=== PATIENT | female | born 1990 | race Caucasian/White ===

== ENCOUNTER → 2018-05-01 | Outpatient (REF) | payer OTHER ==
[~2018-05-01] MED LIST: D 1010004 PO; FISH1000 PO; IBUP60TA PO; LEVO112T2 PO; MAPA500T2 PO; PRENTAB20 PO; VALT1TAB PO; ZOLO100T PO
== END ==
LOC: M SFHCLERA 13:39
PROVIDERS: ATTEND Physician Assistant
DX: N89.8 Other specified noninflammatory disorders of vagina (principal)

== ENCOUNTER 2018-10-17 09:31 | Emergency (ER) | payer OTHER ==
[~2018-10-17] VITALS: Ht 162.6 cm; Wt 76.5 kg
[~2018-10-17 09:31] MED LIST changes: +IBUP600T42 PO; -IBUP60TA PO
[2018-10-17] MEDS ORDERED: ONDANSETRON 4 MG ORAL DISINTEGRATING TAB (Q0162 PER 1MG) PO ONE (11:30)
[2018-10-17] MEDS ORDERED: ACETAMINOPHEN 325 MG TAB PO ONE (11:30)
--- NOTE | 2018-10-17 12:26 | REP ---
CT of the head without contrast Indication: Head injury. Comparison: CT head 08/27/2012. Technique: Axial CT of the head was performed without contrast. Findings: There is no visible soft tissue swelling or calvarial fracture. There is no evidence of acute intracranial hemorrhage or extra-axial fluid collection. Thorpe-white matter differentiation is maintained. There is no mass effect or midline shift. The basal cisterns are patent. There is no hydrocephalus. The visualized paranasal sinuses and mastoid air cells are clear. Impression: No acute intracranial abnormality. Electronically Signed by Priscilla Salmon MD 10/17/2018 11:00 A
[2018-10-17 12:57] VITALS: BP 125/81
[2018-10-17] MEDS ORDERED: ONDA4TAB6 PO (13:07)
[2018-10-17] MEDS ORDERED: IBUP-1022 PO (13:07)
== END 2018-10-17 13:13 | disposition home or self-care (01) ==
LOC: M ED 09:31
DX: S06.0X0A Concussion without loss of consciousness, initial encounter (principal); W19.XXXA Unspecified fall, initial encounter; Y92.099 Unspecified place in other non-institutional residence as the place of occurrence of the external cause; Y93.9 Activity, unspecified; Y99.9 Unspecified external cause status; E03.9 Hypothyroidism, unspecified; Z87.891 Personal history of nicotine dependence; Z79.899 Other long term (current) drug therapy; Z91.030 Bee allergy status
CPT/HCPCS: 70450; 99283; Q0162

== ENCOUNTER → 2019-03-03 | Outpatient (REF) | payer OTHER ==
[~2019-03-03] MED LIST changes: +IBUP-1022 PO; +ONDA4TAB6 PO
[2019-03-03 20:57] LABS: CHLAMYDIA DNA AMPLIFICATION NEGATIVE (NEGATIVE); GC DNA AMPLIFICATION NEGATIVE (NEGATIVE)
== END ==
LOC: M SFHCLERA 10:06
PROVIDERS: ATTEND Nurse Practitioner Family
DX: R50.9 Fever, unspecified (principal)

== ENCOUNTER 2020-06-03 13:25 | Emergency (ER) | payer OTHER ==
[~2020-06-03] VITALS: Ht 162.6 cm; Wt 91.6 kg
--- NOTE | 2020-06-03 14:01 | REP ---
INDICATION: fall injury COMPARISON: None. TECHNIQUE: Three views left shoulder. FINDINGS: There is no evidence of acute fracture, dislocation, or intrinsic bone disease. IMPRESSION: No fracture or dislocation. <Electronically signed by Tony Thorpe > 06/03/20 [id number]
[2020-06-03] MEDS ORDERED: NORCO, ANEXSIA 5/325MG TABLET (HYDROcodone/ACETAMINOPHEN) PO ONE (14:10)
--- NOTE | 2020-06-03 14:45 | REP ---
INDICATION: fell 8 ft onto arm COMPARISON: None. TECHNIQUE: Two views left humerus. FINDINGS: There is no evidence of acute fracture, dislocation, or intrinsic bone disease. IMPRESSION: No fracture or dislocation. <Electronically signed by Tony Thorpe > 06/03/20 [id number]
--- NOTE | 2020-06-03 14:47 | REP ---
INDICATION: fell 8 ft onto arm COMPARISON: None. TECHNIQUE: Two views left forearm. FINDINGS: There is no evidence of acute fracture, dislocation, or intrinsic bone disease. IMPRESSION: No fracture or dislocation. <Electronically signed by Tony Thorpe > 06/03/20 [id number]
[2020-06-03] MEDS ORDERED: KETO10TAB PO (14:57)
[2020-06-03 15:04] VITALS: BP 121/73
== END 2020-06-03 15:08 | disposition home or self-care (01) ==
LOC: M ED 13:25
DX: S49.92XA Unspecified injury of left shoulder and upper arm, initial encounter (principal); W11.XXXA Fall on and from ladder, initial encounter; Y92.009 Unspecified place in unspecified non-institutional (private) residence as the place of occurrence of the external cause; Y93.9 Activity, unspecified; Y99.9 Unspecified external cause status; E03.9 Hypothyroidism, unspecified; E56.9 Vitamin deficiency, unspecified; F41.9 Anxiety disorder, unspecified; F32.9 Major depressive disorder, single episode, unspecified; Z79.899 Other long term (current) drug therapy; Z91.030 Bee allergy status

== ENCOUNTER → 2020-06-18 | Outpatient (CLI) | payer OTHER ==
[~2020-06-18] MED LIST changes: +KETO10TAB PO
--- NOTE | 2020-06-18 10:38 | REP ---
INDICATION: INSTABILITY. COMPARISON: None. TECHNIQUE: Single axillary view of the left shoulder. FINDINGS: Glenohumeral joint dislocation cannot be excluded based on this current single image. No obvious acute fracture. IMPRESSION: Cannot exclude glenohumeral joint dislocation based on current image. <Electronically signed by Eliazar Russell > 06/18/20 [id number]
== END ==
LOC: M SOG 10:00
PROVIDERS: ATTEND Orthopaedic Surgery Sports Medicine
DX: M25.312 Other instability, left shoulder (principal)

== ENCOUNTER 2021-07-20 08:15 | Emergency (ER) | payer OTHER ==
[~2021-07-20] VITALS: Ht 162.6 cm; Wt 82.8 kg
[2021-07-20 09:25] LABS: BASO % 0.3 % (0.0-1.0); EOS # 0.1 10^3/uL (0.0-0.5); EOS % 1.2 % (0.0-3.0); HEMATOCRIT 42.9 % (36.0-47.0); LYMPH # 2.5 10^3/uL (1.5-5.0); LYMPH % 25.7 % (24.0-44.0); MEAN CORPUSCULAR HEMOGLOBIN 28.7 pg (27.0-33.0); MEAN CORPUSCULAR HGB CONC 32.6 g/dl (32.0-36.5); MEAN CORPUSCULAR VOLUME 88.1 fl (80.0-96.0); MONO # 0.6 10^3/uL (0.0-0.8); MONO % 6.3 % (2.0-8.0); NEUTROPHILS # 6.3 10^3/uL (1.5-8.5); NEUTROPHILS % 66.1 % (36.0-66.0); PLATELET COUNT, AUTOMATED 225 10^3/uL (150-450); RED BLOOD COUNT 4.87 10^6/uL (4.00-5.40); WHITE BLOOD COUNT 9.6 10^3/uL (4.0-10.0)
[2021-07-20 09:54] LABS: ALBUMIN 3.4 GM/DL (3.2-5.2); ALT/SGPT 42 U/L (12-78); BILIRUBIN,DIRECT < 0.1 MG/DL (0.0-0.2); BILIRUBIN,TOTAL 0.3 MG/DL (0.2-1.0); LIPASE 87 U/L (73-393)
[2021-07-20 11:44] VITALS: BP 116/81
== END 2021-07-20 12:09 | disposition home or self-care (01) ==
LOC: EEVIPCON 08:15 → M ED 08:15
DX: R10.11 Right upper quadrant pain (principal); R11.2 Nausea with vomiting, unspecified; R56.9 Unspecified convulsions; E53.9 Vitamin B deficiency, unspecified; Z91.030 Bee allergy status; Z79.899 Other long term (current) drug therapy

== ENCOUNTER → 2021-10-02 | Outpatient (REF) | LOC: M LABSMTC 09:21 | PROVIDERS: ATTEND Family Medicine | DX: Z20.822 Contact with and (suspected) exposure to COVID-19 (principal) ==

== ENCOUNTER → 2022-02-03 | Outpatient (REF) ==
[2022-02-03 13:17] LABS: RSV AMPLIFICATION NEGATIVE (NEGATIVE)
== END ==
LOC: M LABSMTC 11:50
PROVIDERS: ATTEND Family Medicine
DX: Z20.818 Contact with and (suspected) exposure to other bacterial communicable diseases (principal)

== ENCOUNTER → 2022-08-03 | Outpatient (REF) ==
[2022-08-03 11:00] LABS: RSV AMPLIFICATION NEGATIVE (NEGATIVE)
== END ==
LOC: M EMP 09:23
PROVIDERS: ATTEND Family Medicine
DX: Z20.822 Contact with and (suspected) exposure to COVID-19 (principal)

== ENCOUNTER 2023-05-16 00:13 | Observation (INO) | payer OTHER ==
[~2023-05-16] VITALS: Ht 162.6 cm; Wt 87.7 kg
[2023-05-16 00:44] LABS: BASO # 0.1 10^3/uL (0.0-0.2); BASO % 0.3 % (0.0-1.0); EOS # 0.1 10^3/uL (0.0-0.5); EOS % 0.7 % (0.0-3.0); HEMATOCRIT 43.9 % (36.0-47.0); HEMOGLOBIN 14.5 g/dl (12.0-15.5); LYMPH # 2.8 10^3/uL (1.5-5.0); LYMPH % 16.5 % (24.0-44.0); MEAN CORPUSCULAR HEMOGLOBIN 28.5 pg (27.0-33.0); MEAN CORPUSCULAR VOLUME 86.2 fl (80.0-96.0); MONO # 0.9 10^3/uL (0.0-0.8); MONO % 5.3 % (2.0-8.0); NEUTROPHILS % 76.8 % (36.0-66.0); PLATELET COUNT, AUTOMATED 273 10^3/uL (150-450); RED BLOOD COUNT 5.09 10^6/uL (4.00-5.40)
[2023-05-16 01:06] LABS: INR 0.95; PARTIAL THROMBOPLASTIN TIME 26.1 SECONDS (24.8-34.2); PROTHROMBIN TIME 12.4 SECONDS (12.5-14.5)
[2023-05-16 01:10] LABS: CK-MB VALUE MASS < 1.0 NG/ML (<3.6)
[2023-05-16 01:11] LABS: BLOOD UREA NITROGEN 16 MG/DL (9-23); CALCIUM LEVEL 9.3 MG/DL (8.5-10.1); CARBON DIOXIDE LEVEL 24 MMOL/L (20-31); CHLORIDE LEVEL 106 MMOL/L (98-107); CREATININE FOR GFR 0.78 MG/DL (0.55-1.30); GLOMERULAR FILTRATION RATE > 60.0 (>60); GLUCOSE, FASTING 105 MG/DL (60-100); POTASSIUM SERUM 4.7 MMOL/L (3.5-5.1); SODIUM LEVEL 139 MMOL/L (136-145)
[2023-05-16 01:21] LABS: CPK CREATINE PHOSPHOKINASE 81 U/L (34-145); MB/CK RELATIVE INDEX 1.23 (< OR =4)
[2023-05-16] MEDS ORDERED: KETOROLAC 30 MG/ML 1ML VIAL As Ordered ONE (01:23)
[2023-05-16] MEDS: METOCLOPRAMIDE INJ 10MG/2ML VIAL IV ONE (01:24)
[2023-05-16 01:28] LABS: HCG, SERUM QUALITATIVE NEGATIVE (NEGATIVE)
[2023-05-16] MEDS ORDERED: ISOVUE-370 76% 100ML VIAL As Ordered ONE (01:30)
[2023-05-16] MEDS: KETOROLAC 30 MG/ML 1ML VIAL IV ONE ×2 (01:52→14:27)
[2023-05-16 01:53] VITALS: BP 111/68; TEMP 97.8; O2SAT 95
[2023-05-16] MEDS ORDERED: MORPHINE 2 MG/ML 1ML VIAL As Ordered ONE (02:07)
[2023-05-16] MEDS: MORPHINE 2 MG/ML 1ML VIAL IV ONE (02:11)
[2023-05-16] MEDS: MAG SULF 1GM/100ML (MAG RUN) 1 GM in IV 1 EA IV ONE (02:12)
[2023-05-16] MEDS: ASPIRIN 81MG CHEW TABLET PO ONE (02:21)
[2023-05-16] MEDS: SIMVASTATIN 40 MG TAB PO ONE (02:22)
[2023-05-16] MEDS ORDERED: BUPR-71 PO (02:58)
[2023-05-16] MEDS ORDERED: LEVO125T4 PO (02:58)
[2023-05-16] MEDS ORDERED: ERGO500029 PO (03:01)
[2023-05-16] MEDS ORDERED: IBUP-1114 PO (03:02)
[2023-05-16] MEDS ORDERED: HOME MED LIST COMPLETE! XX SCH (03:35)
[2023-05-16 04:35] LABS: THYROID STIMULATING HORMONE 2.167 uIU/ML (0.55-4.78)
[2023-05-16] MEDS: MORPHINE 2 MG/ML 1ML VIAL IV PRN ×2 (04:35)
[2023-05-16 04:50] LABS: CHOLESTEROL LEVEL 196 MG/DL (<200); CHOLESTEROL RISK RATIO 4.62 (<5); HDL CHOLESTEROL 42.4 MG/DL (>40); NON-HDL-C 153.6 MG/DL; TRIGLYCERIDES LEVEL 303 MG/DL (<150)
[2023-05-16 05:02] LABS: HEMOGLOBIN A1c 5.2 % (4.0-6.0)
[2023-05-16] MEDS: cefTRIAXone SOD 1 GM in D5W MINI-BAG PLUS 50 ML IV SCH (05:18)
[2023-05-16] MEDS: LEVOTHYROXINE 125MCG TABLET (0.125MG) PO SCH (06:10)
[2023-05-16 07:29] LABS: BASO % 0.2 % (0.0-1.0); HEMATOCRIT 42.8 % (36.0-47.0); HEMOGLOBIN 14.1 g/dl (12.0-15.5); LYMPH # 1.2 10^3/uL (1.5-5.0); LYMPH % 8.3 % (24.0-44.0); MEAN CORPUSCULAR HEMOGLOBIN 28.6 pg (27.0-33.0); MEAN CORPUSCULAR HGB CONC 32.9 g/dl (32.0-36.5); MEAN CORPUSCULAR VOLUME 86.8 fl (80.0-96.0); MONO # 0.1 10^3/uL (0.0-0.8); MONO % 0.8 % (2.0-8.0); NEUTROPHILS # 13.4 10^3/uL (1.5-8.5); NEUTROPHILS % 90.1 % (36.0-66.0); PLATELET COUNT, AUTOMATED 294 10^3/uL (150-450); RED BLOOD COUNT 4.93 10^6/uL (4.00-5.40); WHITE BLOOD COUNT 14.9 10^3/uL (4.0-10.0)
[2023-05-16 07:46] LABS: ERYTHROCYTE SEDIMENTATION RATE 21 mm/hr (0-20)
[2023-05-16 07:52] LABS: ALBUMIN 3.9 G/DL (3.2-5.2); ALKALINE PHOSPHATASE 76 U/L (46-116); ALT/SGPT 23 U/L (7.0-40); AST/SGOT < 8 U/L (<34); BILIRUBIN,TOTAL 0.3 MG/DL (0.3-1.2); BLOOD UREA NITROGEN 15 MG/DL (9-23); CALCIUM LEVEL 9.1 MG/DL (8.5-10.1); CARBON DIOXIDE LEVEL 25 MMOL/L (20-31); CHLORIDE LEVEL 107 MMOL/L (98-107); CREATININE FOR GFR 0.72 MG/DL (0.55-1.30); GLOMERULAR FILTRATION RATE > 60.0 (>60); GLUCOSE, FASTING 202 MG/DL (60-100); MAGNESIUM LEVEL 2.1 MG/DL (1.8-2.4); POTASSIUM SERUM 4.5 MMOL/L (3.5-5.1); SODIUM LEVEL 138 MMOL/L (136-145)
[2023-05-16] MEDS: ASPIRIN 81MG ENTERIC TABLET PO SCH (09:00)
[2023-05-16] MEDS: buPROPion **SR TABLET** (ZYBAN) 150MG PO SCH (09:20)
[2023-05-16] MEDS: VALPROATE SOD INJ 1,000 MG in D5W 50 ML IV ONE (12:16)
[2023-05-16] MEDS: TOPIRAMATE (TopAMAX) 25 MG TAB PO ONE (12:17)
[2023-05-16] MEDS: PANTOPRAZOLE 40MG VIAL IV SCH (14:24)
[2023-05-16] MEDS ORDERED: TOPI-21 PO (14:53)
[2023-05-16] MEDS ORDERED: ASPI81TAEC PO (14:53)
[2023-05-16] MEDS ORDERED: CEFD1CAP9 PO (14:53)
[2023-05-16] MEDS ORDERED: ATOR40TA75 PO (14:53)
[2023-05-16 15:37] VITALS: BP 147/77; TEMP 98.3; O2SAT 99
[2023-05-17] MEDS ORDERED: ENOXAPARIN 40MG/0.4ML SYRINGE (J1650 PER 10MG) SC SCH (09:00)
[2023-05-17] MEDS ORDERED: ATORVASTATIN 20 MG TAB PO SCH (09:00)
[2023-05-19 20:07] LABS: COPPER PLASMA 108 ug/dL (80-158)
[2023-05-21 09:51] LABS: DRVV SCREEN 36.3 SECONDS
[2023-05-21 09:56] LABS: PTT LUPUS TYPE ANTICOAG SCREEN 0.9 (0-1.20)
[2023-05-31 16:17] LABS: ANCA-ATYPICAL <1:20 titer (Neg:<1:20); ANTI THROMBIN 3 ANTIGEN IMMUNO 103 % (72-124); ANTI THROMBIN 3 FUNCT ACTIVITY 127 % (75-135); ANTINUCLEAR ANTIBODIES DIRECT Negative (Negative); CARDIOLIPIN IGA ANTIBODY <9 APL U/mL (0-11); CARDIOLIPIN IGG ANTIBODY <9 GPL U/mL (0-14); CARDIOLIPIN IGM ANTIBODY <9 MPL U/mL (0-12); CYTOPLASMIC NEUTROP AB ANCA-C <1:20 titer (Neg:<1:20); HOMOCYST(E)INE SERUM 4.8 umol/L (0.0-14.5); PERINUCLEAR AB ANCA-P <1:20 titer (Neg:<1:20); PROTEIN C ANTIGEN 83 % (60-150); PROTEIN S ANTIGEN FREE 109 % (61-136); PROTEIN S ANTIGEN TOTAL 78 % (60-150); SJOGREN'S ANTI SS-A <0.2 AI (0.0-0.9); SJOGREN'S ANTI SS-B <0.2 AI (0.0-0.9)
== END 2023-05-16 15:37 | disposition home or self-care (01) ==
LOC: M ED 00:13 → M ED INP 00:14
PROVIDERS: ADMIT Preventive Medicine Undersea and Hyperbaric Medicine; ATTEND Preventive Medicine Undersea and Hyperbaric Medicine
DX: G43.909 Migraine, unspecified, not intractable, without status migrainosus (principal); G45.9 Transient cerebral ischemic attack, unspecified; R82.71 Bacteriuria; G40.909 Epilepsy, unspecified, not intractable, without status epilepticus; E03.9 Hypothyroidism, unspecified; F43.10 Post-traumatic stress disorder, unspecified; E55.9 Vitamin D deficiency, unspecified; Z79.82 Long term (current) use of aspirin; Z91.030 Bee allergy status; Z79.899 Other long term (current) drug therapy
CPT/HCPCS: 36415; 70450; 70496; 70498; 70551; 71045; 80048; 80053; 80061; 81001; 81240; 81241; 82525; 82550; 82553; 82607; 83036; 83090; 83735; 84443; 84484; 84703; 85025; 85300; 85301; 85302; 85305; 85306; 85610; 85652; 85730; 86037; 86038; 86140; 86147; 87086; 93005; 93041; 93306; 94760; 96361; 96365; 96367; 96375; 96376; 99285; C9113; G0378; J0696; J1100; J1885; J2765; J3475; Q9967

== ENCOUNTER → 2023-11-04 | Outpatient (REF) ==
[~2023-11-04] MED LIST changes: +ASPI81TAEC PO; +ATOR40TA75 PO; +BUPR-71 PO; +CEFD1CAP9 PO; +ERGO500029 PO; +IBUP-1114 PO; +LEVO125T4 PO; +ONDA-282 PO; -ONDA4TAB6 PO; +TOPI-21 PO
== END ==
LOC: M EMP 12:40
PROVIDERS: ATTEND Family Medicine
DX: Z11.52 Encounter for screening for COVID-19 (principal)

== ENCOUNTER 2024-01-25 20:56 | Emergency (ER) | payer OTHER ==
[~2024-01-25] VITALS: Ht 162.6 cm; Wt 81.8 kg
[2024-01-25] MEDS ORDERED: AMOX875T2 PO (23:22)
[2024-01-25] MEDS ORDERED: AZIT-12 PO (23:22)
[2024-01-25] MEDS ORDERED: PRED20TA PO (23:22)
[2024-01-25] MEDS ORDERED: VENTAER INH (23:22)
[2024-01-25] MEDS ORDERED: FLUC150T9 PO (23:25)
[2024-01-25] MEDS: AZITHROMYCIN 250MG TABLET PO ONE (23:30)
[2024-01-25] MEDS: predniSONE 20 MG TAB PO ONE (23:30)
[2024-01-25] MEDS: ALBUTEROL 90 MCG/ACT 8GM HFA INHALER INH ONE (23:31)
[2024-01-25] MEDS: AUGMENTIN 875 MG TAB PO ONE (23:31)
[2024-01-25 23:34] VITALS: BP 137/84; TEMP 96.4; O2SAT 96
== END 2024-01-25 23:35 | disposition home or self-care (01) ==
LOC: M ED 20:56
DX: J18.9 Pneumonia, unspecified organism (principal); R56.9 Unspecified convulsions; E03.9 Hypothyroidism, unspecified; Z79.899 Other long term (current) drug therapy; Z91.030 Bee allergy status
CPT/HCPCS: 71046; 87486; 87581; 87633; 87798; 99283; J7512

== ENCOUNTER 2024-03-30 06:06 | Day surgery (SDC) | payer OTHER ==
[~2024-03-30] VITALS: Ht 162.6 cm; Wt 84.8 kg
[~2024-03-30 06:06] MED LIST changes: +AMOX875T2 PO; +AZIT-12 PO; +FLUC150T9 PO; +META0.52 PO; +MM S100C PO; +PRED20TA PO; +SYNT125T PO; +TRAZ1TAB10 PO; +VENTAER INH
[2024-03-30] MEDS ORDERED: LIDOCAINE 1% SDV 5ML VIAL SC PRN (06:20)
[2024-03-30] MEDS: LR 1,000 ML IV SCH (06:49)
[2024-03-30] MEDS ORDERED: ACETAMINOPHEN 1000MG/100ML IV BAG As Ordered ONE (07:02)
[2024-03-30] MEDS ORDERED: ONDANSETRON 4MG 2ML VIAL As Ordered ONE (07:02)
[2024-03-30] MEDS ORDERED: KETOROLAC 60MG 2ML VIAL As Ordered ONE (07:02)
[2024-03-30] MEDS ORDERED: ROCURONIUM BROMIDE 50MG/5ML VIAL As Ordered ONE (07:03)
[2024-03-30] MEDS ORDERED: LIDOCAINE 2% 100MG/5ML SDV (FOR ANES.) As Ordered ONE (07:03)
[2024-03-30] MEDS ORDERED: SUGAMMADEX SODIUM 500 MG/5 ML VIAL (BRIDION) As Ordered ONE (07:03)
[2024-03-30] MEDS ORDERED: propofoL 200 MG/20 ML VIAL As Ordered ONE (07:03)
[2024-03-30] MEDS ORDERED: fentaNYL 100 MCG/2 ML INJECTION As Ordered ONE (07:10)
[2024-03-30] MEDS ORDERED: MIDAZOLAM INJ 2MG/2ML VIAL As Ordered ONE (07:11)
[2024-03-30] MEDS ORDERED: HYDROmorphone HCL 2MG/ML 1ML VIAL As Ordered ONE (07:54)
[2024-03-30] MEDS ORDERED: GLYCOPYRROLATE INJ 0.2 MG/ML 2 ML VIAL As Ordered ONE (08:04)
[2024-03-30] MEDS ORDERED: LR 1,000 ML IV SCH (08:45)
[2024-03-30] MEDS: fentaNYL 100 MCG/2 ML INJECTION IV PRN (09:11)
[2024-03-30] MEDS: oxyCODONE 5MG TAB PO PRN (09:35)
[2024-03-30] MEDS: HYDROMORPHONE HCL 0.5 MG/ 0.5 ML SYRINGE IV PRN (09:35)
[2024-03-30] MEDS: ONDANSETRON 4MG 2ML VIAL IV PRN (09:43)
[2024-03-30] MEDS: MORPHINE 4 MG/ML 1ML VIAL IV ONE (11:59)
[2024-03-30] MEDS: PROMETHAZINE 25MG/ML 1ML VIAL IV ONE (12:07)
[2024-03-30 13:35] VITALS: BP 112/70; TEMP 97; O2SAT 97
== END 2024-03-30 13:35 | disposition home or self-care (01) ==
LOC: M SDC 06:06
PROVIDERS: ATTEND Surgery
DX: K64.8 Other hemorrhoids (principal); K64.4 Residual hemorrhoidal skin tags; E03.9 Hypothyroidism, unspecified; K21.9 Gastro-esophageal reflux disease without esophagitis; Z87.891 Personal history of nicotine dependence; Z79.899 Other long term (current) drug therapy; Z91.030 Bee allergy status; Z85.828 Personal history of other malignant neoplasm of skin; F43.10 Post-traumatic stress disorder, unspecified
CPT/HCPCS: 46255; 81025; J0131; J0665; J1100; J1171; J1596; J1885; J2250; J2405; J2550; J3010

== ENCOUNTER 2024-04-01 13:31 | Observation (INO) | payer OTHER ==
[~2024-04-01] VITALS: Ht 162.6 cm; Wt 84.8 kg
[2024-04-01] MEDS: MORPHINE 4 MG/ML 1ML VIAL IV ONE (14:02)
[2024-04-01 14:06] LABS: BASO % 0.4 % (0.0-1.0); EOS # 0.2 10^3/uL (0.0-0.5); EOS % 1.5 % (0.0-3.0); HEMATOCRIT 40.8 % (36.0-47.0); HEMOGLOBIN 13.3 g/dl (12.0-15.5); LYMPH # 2.4 10^3/uL (1.5-5.0); MEAN CORPUSCULAR HEMOGLOBIN 29.4 pg (27.0-33.0); MEAN CORPUSCULAR HGB CONC 32.6 g/dl (32.0-36.5); MEAN CORPUSCULAR VOLUME 90.1 fl (80.0-96.0); MONO # 0.8 10^3/uL (0.0-0.8); MONO % 7.2 % (2.0-8.0); NEUTROPHILS % 67.5 % (36.0-66.0); PLATELET COUNT, AUTOMATED 223 10^3/uL (150-450); RED BLOOD COUNT 4.53 10^6/uL (4.00-5.40); WHITE BLOOD COUNT 10.4 10^3/uL (4.0-10.0)
[2024-04-01] MEDS ORDERED: PERCOCET 5MG/325MG TAB PO PRN (14:30)
[2024-04-01] MEDS ORDERED: ISOVUE-370 76% 100ML VIAL As Ordered ONE (14:31)
[2024-04-01 14:39] LABS: LIPASE 25 U/L (12-53)
[2024-04-01 14:41] LABS: ALBUMIN 3.2 G/DL (3.2-5.2); ALKALINE PHOSPHATASE 62 U/L (35-104); ALT/SGPT 14 U/L (7.0-40); AST/SGOT 8 U/L (<34); BILIRUBIN,DIRECT < 0.1 MG/DL (<0.4); BILIRUBIN,TOTAL 0.3 MG/DL (0.3-1.2); BLOOD UREA NITROGEN 10 MG/DL (9-23); CALCIUM LEVEL 8.9 MG/DL (8.5-10.1); CARBON DIOXIDE LEVEL 28 MMOL/L (20-31); CHLORIDE LEVEL 107 MMOL/L (98-107); CREATININE FOR GFR 0.69 MG/DL (0.55-1.30); GLOMERULAR FILTRATION RATE > 60.0 (>60); GLUCOSE, FASTING 121 MG/DL (60-100); POTASSIUM SERUM 4.3 MMOL/L (3.5-5.1); SODIUM LEVEL 143 MMOL/L (136-145); TOTAL PROTEIN 6.4 G/DL (5.7-8.2)
[2024-04-01] MEDS: oxyCODONE 5MG TAB PO PRN ×2 (14:54→21:30)
[2024-04-01] MEDS: metroNIDAZOLE 500 MG in IV 1 EA IV SCH (15:09)
[2024-04-01] MEDS: KCL 20MEQ IN D5/0.45NS 1000ML 1,000 ML IV SCH (15:09)
[2024-04-01] MEDS: ONDANSETRON 4MG 2ML VIAL IV PRN (15:32)
[2024-04-01] MEDS ORDERED: LIDOCAINE 2% 100MG/5ML SDV (FOR ANES.) As Ordered ONE (15:48)
[2024-04-01] MEDS ORDERED: MIDAZOLAM INJ 2MG/2ML VIAL As Ordered ONE (15:48)
[2024-04-01] MEDS ORDERED: propofoL 200 MG/20 ML VIAL As Ordered ONE (15:48)
[2024-04-01] MEDS: PIPERACILLIN/TAZOBACTAM SOD 3.375 GM in DEXTROSE 5% (D5W) ADV/MINI-BAG 50 ML IV SCH (16:00)
[2024-04-01] MEDS: VANCOMYCIN HCL 1,000 MG, VIAL MATE ADAPTER 1 EACH in NS 250 ML IV ONE (16:00)
[2024-04-01] MEDS ORDERED: fentaNYL 100 MCG/2 ML INJECTION As Ordered ONE (16:10)
[2024-04-01] MEDS: VANCOMYCIN 1000MG/20ML VIAL As Ordered ONE (16:25)
[2024-04-01] MEDS: ZOSYN 3.375GM VIAL As Ordered ONE (16:30)
[2024-04-01] MEDS ORDERED: KETOROLAC 60MG 2ML VIAL As Ordered ONE (16:56)
[2024-04-01] MEDS ORDERED: ACETAMINOPHEN 1000MG/100ML IV BAG As Ordered ONE (16:56)
[2024-04-01] MEDS ORDERED: LIDOCAINE 5% OINT 30GM TUBE As Ordered ONE (17:09)
[2024-04-01] MEDS: BUPivacaine LIPOSOME/PF 266MG 20ML VIAL (13.3MG/ML)(EXPAREL) As Ordered ONE (17:15)
[2024-04-01] MEDS: ALBUTEROL SULFATE 2.5MG/0.5ML INH NEB SOLN INH ONE (17:20)
[2024-04-01] MEDS ORDERED: fentaNYL 100 MCG/2 ML INJECTION IV PRN (17:20)
[2024-04-01] MEDS ORDERED: ONDANSETRON 4MG 2ML VIAL IV PRN (17:20)
[2024-04-01] MEDS ORDERED: oxyCODONE 5MG TAB PO PRN (17:20)
[2024-04-01] MEDS ORDERED: diphenhydrAMINE 50MG/ML VIAL IV PRN (17:20)
[2024-04-01] MEDS ORDERED: ONDANSETRON 4MG 2ML VIAL As Ordered ONE (17:30)
[2024-04-01] MEDS: HYDROMORPHONE HCL 0.5 MG/ 0.5 ML SYRINGE IV PRN (17:31)
[2024-04-01] MEDS ORDERED: MEPERIDINE 50 MG/ML 1ML VIAL As Ordered ONE (17:34)
[2024-04-01] MEDS: METOCLOPRAMIDE INJ 10MG/2ML VIAL IV STA (17:47)
[2024-04-01] MEDS: PROMETHAZINE 25MG/ML 1ML VIAL IV STA (18:24)
[2024-04-01] MEDS: diphenhydrAMINE 50MG/ML VIAL IV STA (18:25)
[2024-04-01 18:35] VITALS: BP 116/59; TEMP 97.7; O2SAT 95
[2024-04-01 19:04] VITALS: BP 114/58; TEMP 97.7; O2SAT 96
[2024-04-01 20:06] VITALS: BP 114/58; TEMP 97.3; O2SAT 97
[2024-04-01 20:59] VITALS: BP 118/78; TEMP 97.9; O2SAT 97
[2024-04-01] MEDS: GABAPENTIN 300 MG CAP PO SCH (21:00)
[2024-04-01] MEDS: VANCOMYCIN HCL 1,000 MG, VIAL MATE ADAPTER 1 EACH in NS 250 ML IV SCH (21:23)
[2024-04-01] MEDS: MIRALAX *UNIT DOSE* 17GM PACKET PO SCH (21:23)
[2024-04-01] MEDS: SENOKOT S TAB PO SCH (21:23)
[2024-04-01 22:15] VITALS: BP 109/61; TEMP 97.5; O2SAT 95
[2024-04-01 23:15] VITALS: BP 119/65; TEMP 97.7; O2SAT 96
[2024-04-01] MEDS ORDERED: LIDO5CRE6 TOP (23:54)
[2024-04-01] MEDS ORDERED: IBUP80TA PO (23:54)
[2024-04-01] MEDS ORDERED: ATIV1TAB10 PO (23:54)
[2024-04-01] MEDS ORDERED: HYDR-3713 PO (23:54)
[2024-04-01] MEDS ORDERED: REFR0.5D8 OU (23:57)
[2024-04-01] MEDS: ACETAMINOPHEN *IV* 1,000 MG in IV 1 EA IV SCH (23:59)
[2024-04-01] MEDS ORDERED: CLEAPOW10 PO (23:59)
[2024-04-02] MEDS: HYDROmorphone 4MG TABLET PO PRN
[2024-04-02] MEDS ORDERED: HOME MED LIST COMPLETE! XX SCH
[2024-04-02 00:15] VITALS: BP 113/78; TEMP 98; O2SAT 95
[2024-04-02] MEDS: methocarbamoL 750 MG TAB PO PRN (03:48)
[2024-04-02 04:15] VITALS: BP 113/57; TEMP 97.5; O2SAT 97
[2024-04-02 05:54] LABS: HEMATOCRIT 37.5 % (36.0-47.0); HEMOGLOBIN 12.2 g/dl (12.0-15.5); MEAN CORPUSCULAR HEMOGLOBIN 28.6 pg (27.0-33.0); MEAN CORPUSCULAR HGB CONC 32.5 g/dl (32.0-36.5); MEAN CORPUSCULAR VOLUME 87.8 fl (80.0-96.0); PLATELET COUNT, AUTOMATED 233 10^3/uL (150-450); RED BLOOD COUNT 4.27 10^6/uL (4.00-5.40); WHITE BLOOD COUNT 14.5 10^3/uL (4.0-10.0)
[2024-04-02] MEDS: LORazepam 0.5 MG TAB PO PRN (06:05)
[2024-04-02 06:18] LABS: BLOOD UREA NITROGEN 8 MG/DL (9-23); CALCIUM LEVEL 8.2 MG/DL (8.5-10.1); CARBON DIOXIDE LEVEL 27 MMOL/L (20-31); CHLORIDE LEVEL 104 MMOL/L (98-107); CREATININE FOR GFR 0.65 MG/DL (0.55-1.30); GLOMERULAR FILTRATION RATE > 60.0 (>60); GLUCOSE, FASTING 140 MG/DL (60-100); POTASSIUM SERUM 4.6 MMOL/L (3.5-5.1); SODIUM LEVEL 140 MMOL/L (136-145)
[2024-04-02 08:00] VITALS: BP 137/87; TEMP 97; O2SAT 98
[2024-04-02] MEDS: ENOXAPARIN 40MG/0.4ML SYRINGE (J1650 PER 10MG) SC SCH (09:00)
[2024-04-02] MEDS: METAMUCIL (PSYLLIUM) PACKET PO SCH (09:13)
[2024-04-02 12:00] VITALS: BP 125/76; TEMP 98.1; O2SAT 98
[2024-04-02] MEDS: MOM 30ML SUSPENSION UDC PO PRN (12:07)
[2024-04-02] MEDS: oxyCODONE 5MG TAB PO PRN (12:08)
[2024-04-02 12:20] LABS: HEMATOCRIT 37.1 % (36.0-47.0); MEAN CORPUSCULAR HEMOGLOBIN 28.7 pg (27.0-33.0); MEAN CORPUSCULAR HGB CONC 32.3 g/dl (32.0-36.5); MEAN CORPUSCULAR VOLUME 88.8 fl (80.0-96.0); PLATELET COUNT, AUTOMATED 238 10^3/uL (150-450); RED BLOOD COUNT 4.18 10^6/uL (4.00-5.40); WHITE BLOOD COUNT 13.3 10^3/uL (4.0-10.0)
[2024-04-02] MEDS: BENZONATATE 100MG CAPSULE PO PRN (15:37)
[2024-04-02] MEDS: GOLYTELY SOLN 4000 ML BTL PO ONE (16:36)
[2024-04-02] MEDS: VANCOMYCIN HCL 1,250 MG, VIAL MATE ADAPTER 1 EACH in NS 250 ML IV SCH (18:39)
[2024-04-02 19:19] VITALS: BP 111/68; TEMP 97.9; O2SAT 99
[2024-04-03] VITALS (10 sets, daily range): BP systolic 109–140; BP diastolic 61–86; TEMP 96.4–97.7; O2SAT 94–99
[2024-04-03] MEDS: LEVOTHYROXINE 125MCG TABLET (0.125MG) PO SCH (04:53)
[2024-04-03] MEDS ORDERED: ROCURONIUM BROMIDE 50MG/5ML VIAL As Ordered ONE (07:01)
[2024-04-03] MEDS ORDERED: ePHEDrine SULFATE 25 MG/5 ML(5MG/ML) SYRINGE As Ordered ONE (07:02)
[2024-04-03] MEDS ORDERED: PHENYLephrine 500MCG 5ML (100MCG/ML) SYRINGE As Ordered ONE (07:02)
[2024-04-03] MEDS ORDERED: dexmedeTOMIDine (4MCG/ML)200MCG/50ML BTL (PRECEDEX) As Ordered ONE (07:02)
[2024-04-03] MEDS ORDERED: SUGAMMADEX SODIUM 500 MG/5 ML VIAL (BRIDION) As Ordered ONE (08:19)
[2024-04-03] MEDS: LIDOCAINE 2% JELLY 6ML SYRINGE As Ordered ONE (08:25)
[2024-04-03] MEDS: IPRATROPIUM 0.5MG/ALBUTEROL 2.5MG INH SOL UD 3ML (DUONEB) NEB ONE (09:12)
[2024-04-03 11:18] LABS: HEMATOCRIT 37.4 % (36.0-47.0); HEMOGLOBIN 11.9 g/dl (12.0-15.5); MEAN CORPUSCULAR HGB CONC 31.8 g/dl (32.0-36.5); MEAN CORPUSCULAR VOLUME 91.2 fl (80.0-96.0); PLATELET COUNT, AUTOMATED 200 10^3/uL (150-450); WHITE BLOOD COUNT 13.8 10^3/uL (4.0-10.0)
[2024-04-04 00:05] VITALS: BP 119/69; TEMP 96.8; O2SAT 96
[2024-04-04 04:15] VITALS: BP 132/85; TEMP 97.2; O2SAT 98
[2024-04-04 05:57] LABS: HEMATOCRIT 33.3 % (36.0-47.0); HEMOGLOBIN 10.7 g/dl (12.0-15.5); MEAN CORPUSCULAR HEMOGLOBIN 28.8 pg (27.0-33.0); MEAN CORPUSCULAR HGB CONC 32.1 g/dl (32.0-36.5); MEAN CORPUSCULAR VOLUME 89.8 fl (80.0-96.0); PLATELET COUNT, AUTOMATED 213 10^3/uL (150-450); RED BLOOD COUNT 3.71 10^6/uL (4.00-5.40); WHITE BLOOD COUNT 11.7 10^3/uL (4.0-10.0)
[2024-04-04 06:27] LABS: BLOOD UREA NITROGEN 9 MG/DL (9-23); CALCIUM LEVEL 8.3 MG/DL (8.5-10.1); CARBON DIOXIDE LEVEL 26 MMOL/L (20-31); CHLORIDE LEVEL 109 MMOL/L (98-107); GLOMERULAR FILTRATION RATE > 60.0 (>60); GLUCOSE, FASTING 118 MG/DL (60-100); SODIUM LEVEL 144 MMOL/L (136-145)
[2024-04-04 08:00] VITALS: BP 150/90; TEMP 97.2; O2SAT 96
[2024-04-04] MEDS: LIDOCAINE 4% CREAM 5GM (LMX4) TOP PRN (08:47)
[2024-04-04 12:00] VITALS: BP 121/80; TEMP 97; O2SAT 96
[2024-04-04] MEDS: PROMETHAZINE 25MG/ML 1ML VIAL IV PRN (14:33)
[2024-04-04] MEDS: diazePAM 5MG TABLET PO PRN (14:34)
[2024-04-04 16:30] VITALS: BP 125/70; TEMP 97; O2SAT 97
[2024-04-04 19:50] VITALS: BP 121/74; TEMP 97; O2SAT 93
[2024-04-05 00:28] VITALS: BP 106/65; TEMP 97.2; O2SAT 95
[2024-04-05 02:15] VITALS: BP 135/81; TEMP 97
[2024-04-05 04:00] VITALS: BP 114/64; TEMP 97; O2SAT 91
[2024-04-05 08:00] VITALS: BP 133/92; TEMP 96.8; O2SAT 99
[2024-04-05 11:09] LABS: HEMATOCRIT 37.1 % (36.0-47.0); HEMOGLOBIN 11.8 g/dl (12.0-15.5); MEAN CORPUSCULAR HGB CONC 31.8 g/dl (32.0-36.5); MEAN CORPUSCULAR VOLUME 88.1 fl (80.0-96.0); PLATELET COUNT, AUTOMATED 246 10^3/uL (150-450); RED BLOOD COUNT 4.21 10^6/uL (4.00-5.40); WHITE BLOOD COUNT 10.1 10^3/uL (4.0-10.0)
[2024-04-05 12:00] VITALS: BP 146/99; TEMP 97.2; O2SAT 76
[2024-04-05] MEDS: PHENAZOPYRIDINE 100 MG TAB PO SCH (12:02)
[2024-04-05] MEDS: TAMSULOSIN 0.4 MG CAP PO SCH (12:02)
[2024-04-05] MEDS ORDERED: BENZ-18 PO (12:51)
[2024-04-05] MEDS ORDERED: PHEN1TAB73 PO (12:51)
[2024-04-05] MEDS ORDERED: DIAZ5TAB PO (12:51)
[2024-04-05] MEDS ORDERED: GABA-1172 PO (12:51)
[2024-04-05] MEDS ORDERED: OXYC-517 PO (12:51)
[2024-04-05] MEDS ORDERED: METH-1165 PO (12:51)
[2024-04-05] MEDS ORDERED: AMOX875T2 PO (12:51)
[2024-04-05] MEDS ORDERED: FLOM0.4C39 PO (16:45)
== END 2024-04-05 17:16 | disposition home or self-care (01) ==
LOC: M ED 13:31 → M ED INP 13:32 → M MSPAV 18:34
PROVIDERS: ADMIT Surgery; ATTEND Surgery
DX: K61.1 Rectal abscess (principal); T81.49XA Infection following a procedure, other surgical site, initial encounter; K64.8 Other hemorrhoids; N32.89 Other specified disorders of bladder; R10.9 Unspecified abdominal pain; E07.9 Disorder of thyroid, unspecified; F32.A Depression, unspecified; L30.9 Dermatitis, unspecified; F43.10 Post-traumatic stress disorder, unspecified; F41.9 Anxiety disorder, unspecified; N97.9 Female infertility, unspecified; F17.290 Nicotine dependence, other tobacco product, uncomplicated; Z79.2 Long term (current) use of antibiotics; Z79.890 Hormone replacement therapy; Z79.899 Other long term (current) drug therapy; Z91.030 Bee allergy status; Z85.828 Personal history of other malignant neoplasm of skin
CPT/HCPCS: 36415; 46020; 71045; 74177; 80047; 80048; 80076; 80202; 83605; 83690; 84702; 85025; 85027; 93041; 96365; 96366; 96367; 96375; 96376; 99285; G0378; J0131; J0665; J0666; J1100; J1171; J1200; J1836; J1885; J2175; J2250; J2371; J2405; J2543; J2550; J2765; J3010; J3370; Q9967

== ENCOUNTER → 2024-04-25 | Outpatient (CLI) | payer OTHER ==
[~2024-04-25] MED LIST changes: +ATIV1TAB10 PO; +BENZ-18 PO; +CLEAPOW10 PO; +DIAZ5TAB PO; +FLOM0.4C39 PO; +GABA-1172 PO; +HYDR-3713 PO; +IBUP80TA PO; +LIDO5CRE6 TOP; +METH-1165 PO; +OXYC-517 PO; +PHEN1TAB73 PO; +REFR0.5D8 OU
== END ==
LOC: M RAD 10:03
PROVIDERS: ATTEND Internal Medicine Critical Care Medicine
DX: J18.9 Pneumonia, unspecified organism (principal)

== ENCOUNTER → 2024-05-01 | Outpatient (CLI) | payer OTHER | LOC: M RAD 06:34 | PROVIDERS: ATTEND Internal Medicine Critical Care Medicine | DX: J18.9 Pneumonia, unspecified organism (principal) ==

== ENCOUNTER → 2024-09-13 | Outpatient (CLI) | payer OTHER ==
[~2024-09-13] MED LIST changes: -FLOM0.4C39 PO; +TAMS-18 PO
== END ==
LOC: M WHC 11:33
PROVIDERS: ATTEND Nurse Practitioner Family
DX: R22.2 Localized swelling, mass and lump, trunk (principal)

== ENCOUNTER → 2024-11-24 | Outpatient (REF) | payer BC ==
[~2024-11-24] MED LIST changes: -IBUP-1022 PO; +KETO-204; +MONT10TA97; +TIRZ7.5P3
== END ==
LOC: M LAB REF 19:13
PROVIDERS: ATTEND Physician Assistant
DX: J02.9 Acute pharyngitis, unspecified (principal)

== ENCOUNTER 2024-11-28 07:25 | Day surgery (SDC) | payer OTHER ==
[~2024-11-28] VITALS: Ht 162.6 cm; Wt 63.0 kg
[~2024-11-28 07:25] MED LIST changes: +LIDOCAINE 2% 100 MG/5 ML SDV (FOR ANES.) As Ordered ONE; +ONDANSETRON 4MG 2ML VIAL As Ordered ONE; +dexAMETHasone 4 MG/ML 1 ML VIAL As Ordered ONE; +dexmedeTOMIDine (4 MCG/ML) 200 MCG/50 ML BTL As Ordered ONE
[2024-11-28] MEDS ORDERED: LR 1,000 ML IV SCH ×2 (07:55→10:25)
[2024-11-28] MEDS ORDERED: MIDAZOLAM INJ 2 MG/2 ML VIAL As Ordered ONE (08:39)
[2024-11-28] MEDS ORDERED: ROCURONIUM BROMIDE 50MG/5ML VIAL As Ordered ONE (09:10)
[2024-11-28] MEDS: ceFAZolin SOD 2 GM IV ONCE IV ONE (09:45)
[2024-11-28] MEDS ORDERED: ACETAMINOPHEN 1000MG/100ML IV BAG As Ordered ONE (09:56)
[2024-11-28] MEDS ORDERED: SUGAMMADEX SODIUM 200 MG/2 ML VIAL As Ordered ONE (10:19)
[2024-11-28] MEDS ORDERED: HYDROMORPHONE HCL 0.5 MG/0.5 ML SYRINGE IV PRN (10:25)
[2024-11-28] MEDS ORDERED: HYDROmorphone HCL 2 MG/ML 1 ML VIAL As Ordered ONE (10:40)
[2024-11-28] MEDS: ONDANSETRON 4MG 2ML VIAL IV PRN (11:02)
[2024-11-28 11:55] VITALS: BP 110/59; TEMP 97.3; O2SAT 96
== END 2024-11-28 12:18 | disposition home or self-care (01) ==
LOC: M SDC 07:25
PROVIDERS: ATTEND Surgery
DX: D17.1 Benign lipomatous neoplasm of skin and subcutaneous tissue of trunk (principal); Z91.030 Bee allergy status
CPT/HCPCS: 21931; 81025; 88304; J0131; J0665; J0666; J0688; J1100; J1171; J2250; J2405; J2765; J3010